=== PATIENT | male | born 1980 | race Caucasian/White ===

== ENCOUNTER → 2020-08-30 15:43 | Outpatient (CLI) | payer BC, SELFPAY ==
--- NOTE | ~2020-08-30 | XR_ITS ---
XR abdomen/kub 1V DATE: 08/30/2020 16:00 INDICATION: Ureteral calculi TECHNIQUE: AP projection, 2 views COMPARISON: None FINDINGS: There is a several millimeter calcification overlying the expected position of the right ur eterovesical junction. No other calcifications are apparent over the urinary tracts. The psoas shadows are intact. No visceromegaly is evident. No evidence of bowel obstruction. Included skeletal structures are unremarkable. IMPRESSION: Suspected right ureterovesical junction several millimeter calcified calculus Reviewed, dictated and finalized at Location A. Reviewed, dictated and finalized at location B. IMPRESSION: Suspected right ureterovesical junction several millimeter calcifie d calculus
== END ==
PROVIDERS: Visit Provider Nurse Practitioner Adult Health
DX: N20.1 Calculus of ureter (principal)
CPT/HCPCS: 74018

== ENCOUNTER → 2020-09-03 12:02 | Outpatient (CLI) | payer BC, SELFPAY ==
--- NOTE | ~2020-09-03 | XR_ITS ---
XR abdomen/kub 1V 09/03/2020 12:18 INDICATION: Ureteral stone TECHNIQUE: KUB COMPARISON: None FINDINGS: Bowel gas pattern is normal. There is no evidence of free air, mass, organomegaly, ascites or obstruction. There is calcification in the right pelvis, possibly distal ureteral stone. This grupo cification is unchanged. Differential diagnosis includes pelvic phlebolith. The bones appear intact. IMPRESSION: 1: Possible distal right ureteral stone versus phlebolith. Recommend correlation with CT.. Reviewed, dictated and finalized at location A. IMPRESSION: 1: Possible distal right ureteral stone versus phlebolith. Recommend correlatio n with CT..
== END ==
PROVIDERS: Visit Provider Nurse Practitioner Adult Health
DX: N20.1 Calculus of ureter (principal)
CPT/HCPCS: 74018

== ENCOUNTER → 2020-09-10 02:05 | Outpatient (CLI) | payer BC, SELFPAY ==
[2020-09-10 17:04] LABS: SARS-CoV-2 RNA PCR Negative
== END ==
PROVIDERS: Visit Provider Urology
DX: Z01.812 Encounter for preprocedural laboratory examination (principal); Z20.822 Contact with and (suspected) exposure to COVID-19
CPT/HCPCS: C9803; U0003; U0005

== ENCOUNTER 2020-09-13 01:51 | Day surgery (SDC) | payer BC, SELFPAY ==
[2020-09-07 15:15] VITALS: BMI 25.0
[2020-09-13] VITALS (7 sets, daily range): BP systolic 113–152; BP diastolic 58–92; PULSE 72–118; RESP 14–18; TEMP 36.3–36.6; O2SAT 97–100
--- NOTE | ~2020-09-13 | XR_ITS ---
EXAMINATION: XR retrograde pyelogram RT EXAM DATE: 09/13/2020 12:15 INDICATION: Right-sided retrograde pyelogram. TECHNIQUE: Fluoroscopy used during XR retrograde pyelogram RT performed by Dr. New Garcia MD , urologist. The radiologist Jayro Keyes M.D. dictating this report of the image(s) available was no t present for the procedure. Total fluoroscopic time of 25 seconds. The DAP for this procedure was 310 radcm2. A total of 52 images sent to PACS from the exam. Cine run(s) available for review. FINDINGS: Approximately 3 mm right pelvic calcification reidentified. This overlies the ureter in re trograde portion of exam. Could be a distal ureteral stone. There is mild right hydroureteronephrosis . Correlate with procedure note. IMPRESSION: Mild right hydroureteronephrosis. Possible distal ureteral stone. Reviewed, dictated and finalized at location B.
--- NOTE | 2020-09-13 06:31 | WPDHPUPDATE1 ---
History and Physical Update Update Date/Time: 09/13/20 06:31 History and Physical has been reviewed, including an updated exam of the patient. There are NO changes in the patient's condition. Risks, benefits, and alternatives have been discussed and questions answered. Patient agrees to proceed with procedure.
[2020-09-13] MEDS: LACTATED RINGERS 1,000 ML 30 ML IV CONT ×2 (09:55→13:02)
--- NOTE | 2020-09-13 10:53 | WPDANESEPPF ---
Anes - Initial Pre Proc Eval Procedure: Operation Date: 09/13/20 11:15 Proposed Procedures p Cystoscopy, Right Ureteroscopy, Retrograde Pyelogram, Stone Extraction, Possible Right Stent Placement - New Garcia MD s Possible Holmium Laser Procedure - New Garcia MD Date/Time: 09/13/20 10:53 Surgeon: New Garcia MD Pre Op Diagnosis: right ureteral kidney stone Patient Data Age: 40 Gender: M Height: 5 ft 6 in Weight: 67.1 kg Last Vital Signs Temp 36.6 C 09/13/20 10:00 Pulse 88 09/13/20 10:00 Resp 18 09/13/20 10:00 BP 135/84 09/13/20 10:00 Pulse Ox 100 09/13/20 10:00 Allergies Allergy/AdvReac Type Severity Reaction Status Date / Time No Known Allergies Allergy Unverified 09/13/20 09:58 Home Medications Medication Instructions Recorded Confirmed Type testosterone cypionate 200 mg IM WEEKLY 09/07/20 09/07/20 History Patient hx anesthesia problems: none Family hx anesthesia problems: none PMFSH Past Medical History Medical History Allergies Screening, lipid Family History Family History Father Family history of atrial fibrillation Social History Social History Smoking status: Never smoker Smoking end date: 04/13/08 Alcohol intake: current Drinks per week: 2 Substance use: never Substance use type: does not use Living arrangements: alone Spiritual care concerns: No Anes - Eval Final PreProcedure Day of Procedure 09/13/20 10:53 Patient weight: normal Heart: regular rate and rhythm Lungs: clear to auscultation Airway: Mallampati scale class II Neurological: alert and oriented Last oral intake: >/= 8 hours ASA classification: I Emergent: no Anesthetic plan: proceed Anesthesia type and monitoring: general LMA and standard monitoring Informed Consent: The patient's anesthetic plan and its attendant risks and benefits were discussed with the patient/family/POA. Questions were solicited and answers provided to the satisfaction of the patient/family/POA.
[2020-09-13] MEDS: LIDOCAINE HCL 2% GEL UROJET 10 ML PKG MUCOUS MEM (11:55)
[2020-09-13] MEDS: ceFAZolin 2 GM/D5W 50 ML 2 GM/50 ML BAG IVPB (11:55)
[2020-09-13] MEDS: KETOROLAC 30 MG/ML VIAL (*BKC) IV PUSH (12:08)
--- NOTE | 2020-09-13 12:12 | PM.PROC ---
Procedure Note - Detailed Date of procedure: 09/13/20 Pre-op diagnosis: right ureteral stone Post-op diagnosis: same Procedure performed: Cystoscopy, right ureteroscopy with stone extraction Description of procedure: The patient was brought to the operative suite where he is prepped and draped in a routine sterile fashion while in the dorsal lithotomy position after the uneventful induction of a general LMA anesthetic. A 19F rigid cystoscope was placed in the bladder. There are no urethral strictures. His prostatic urethra measures, approximately, 1.5cm with no median lobe enlargement. The bladder mucosa was endoscopically normal without hyperemia or neoplasm. There was a single, orthotopic ureteral orifice bilaterally. A 0.035 glidewire was advanced into the right renal pelvis under fluoroscopy. The distal ureter was dilated with an 8F/10F ureteral dilator. Ureteroscopy was undertaken with a short, tapered, semi-rigid ureteroscope and the stone was extracted with ease using a 1.9F Escape disposable stone basket. Due to the ease of this manipulation I opted not to place a ureteral stent. The patient's bladder was emptied and was taken to the recovery room having tolerated this procedure well. Anesthesia: GLMA Surgeon: New Garcia MD Estimated blood loss (mL): 0 Drains: No Packing: No Pathology: yes Complications: No immediate complications Condition: stable Disposition: PACU
== END 2020-09-13 13:36 | disposition home or self-care (01) ==
PROVIDERS: Visit Provider Urology
PROC: (CPT 52352; principal; 2020-09-13 11:15)
DX: N20.1 Calculus of ureter (principal)
CPT/HCPCS: 52352; 74420; 82365; 88300; A9270; C1758; C1769; J0690; J1100; J1885; J2250; J2405; J2704; J3010; J7120; Q9966

== ENCOUNTER 2022-04-24 08:25 | Outpatient (CLI) | payer BC, SELFPAY ==
--- NOTE | 2022-04-29 15:57 | WPDHOMESLEEP ---
Sleep Study - Home Unattended Date of Study: 04/24/22 Ordering Provider: Brian Yin MD Interpreting Provider: Lisa Woodruff, DO Home Sleep Study Type: Watch PAT Height: 1.68 m Weight: 68.039 kg Body Mass Index: 24.2 Neck Circumference (inches): 14.25 [place]: 12 Reason for Sleep Study Daytime hypersomnia Sleep History The patient is a 41-year-old male with dyslipidemia, seasonal allergies, hypogonadism and palpitations that had a sleep study ordered by his primary care for evaluation of sleep disturbances. The patient rarely awakens from sleep short of breath. He rarely awakens at night with heartburn, belching or cough. He frequently snores and is frequently loud enough that others complain. He occasionally has trouble sleeping when he has a cold. He denies waking up gasping for air throughout the night. He rarely has breathing problems at night observed by himself or others. He rarely sweats excessively at night. He occasionally has heart palpitations or irregular heartbeats during the night. He frequently falls asleep during the day but never while driving. He denies sleep paralysis, cataplexy and hypnagogic / hypnopompic hallucinations. He occasionally has trouble at school or work due to sleepiness. He denies feeling afraid of going to sleep. He denies having nightmares. He occasionally remembers his dreams. He frequently has thoughts racing through his mind. He denies feeling sad or depressed. He occasionally has anxiety. He frequently has muscular tension. He denies noticing parts of his body jerk. He rarely kicks during the night. He occasionally has crawling and aching feelings in his legs and occasionally has leg pain during the night. He denies grinding his teeth during sleep and denies awakening with morning jaw pain. He is occasionally bothered by pain during the day but rarely awakened by pain during the night. He constantly wakes up feeling stiff in the morning. He frequently wakes up with sore achy muscles. He frequently wakes up with pain in the neck, spine and other joints. He goes to bed at 10:30 p.m. on weekdays and between 11:00 p.m. to midnight on the weekends. He is able to fall asleep immediately. He wakes up 1-2 times throughout the night to urinate. He is able to fall back asleep within 30 minutes. He wakes up at 7:00 a.m. on both weekdays and weekends. He typically gets a minimum of 8 hours of sleep per night. He will stay in bed for a few minutes after waking up in the morning. He currently lives with his and 2 children. He does not consume any caffeinated beverages within 2 hours of bedtime. He does not engage in physical exercise before bedtime. He will watch television before falling asleep. He will take naps in the afternoon or the evening but they are not refreshing. He does not consume caffeinated beverages throughout the day. He quit smoking 20 years ago. He drinks up to 2 alcoholic beverages per day. He denies recreational drug use. [facility] Past Medical History Medical History Dyslipidemia Hypogonadism in male Kidney stones Right ureteral stone Seasonal allergies Vertigo Surgical History Surgical History History of cystoscopy (~09/2020) Cystoscopy, right ureteroscopy with stone extraction Family History Family History Father Family history of atrial fibrillation Grandparent Cancer Social History Social History Smoking status: Former smoker Smoking end date: 04/13/08 Alcohol intake: current Drinks per week: 2 Substance use: never Substance use type: does not use Lack of Transportation: No Lack of Food: Never True Current Housing: I Have Housing Concerned About Future Housing: No Difficulty Payin
[2022-04-29 16:09] VITALS: BMI 24.2
== END 2022-04-28 14:35 | disposition home or self-care (01) ==
PROVIDERS: PCP Family Medicine; Visit Provider Family Medicine
DX: G47.10 Hypersomnia, unspecified (principal); R40.0 Somnolence
CPT/HCPCS: 95800

== ENCOUNTER 2022-04-28 13:09 | Outpatient (CLI) | payer BC, SELFPAY ==
[2022-04-28 20:00] LABS: Alanine Aminotransferase 74 U/L (6-50); Albumin Level 4.4 g/dL (3.5-5.1); Alkaline Phosphatase 62 U/L (38-126); Anion Gap 5 mmol/L (8-16); Aspartate Amino Transferase 47 U/L (17-59); Bilirubin,Total 0.7 mg/dL (0.2-1.3); Blood Urea Nitrogen 13 mg/dL (9-20); Carbon Dioxide 31 mmol/L (22-30); Chloride 102 mmol/L (98-107); Cholesterol 230 mg/dL (0-200); Estimated Glomerular Filt Rate > 60; Glucose 93 mg/dL (65-110); HDL Direct 48 mg/dL; Potassium 4.8 mmol/L (3.4-5.0); Sodium 138 mmol/L (137-145); Triglycerides 200 mg/dL (<150)
[2022-04-28 20:11] LABS: LDL Cholesterol Direct 115 mg/dL
[2022-04-28 20:14] LABS: Basophils Percent Auto 0.9 % (0.2-1.2); Eosinophils Absolute Auto 0.1 K/mm3 (0-0.3); Eosinophils Percent Auto 2.5 % (0-4.4); Hematocrit 50.4 % (42.0-52.0); Hemoglobin 15.9 g/dL (14.0-18.0); Lymphocytes Absolute Auto 1.57 K/mm3 (0.9-3.2); Mean Corpuscular HGB Conc 31.5 g/dl (32-36); Mean Corpuscular Hemoglobin 27.2 pg (26-34); Mean Corpuscular Volume 86.2 fl (80-100); Mean Platelet Volume 9.7 fl (7.4-10.4); Monocytes Absolute Auto 0.4 K/mm3 (0.1-0.6); Monocytes Percent Auto 8.7 % (2.6-8.5); Neutrophils Absolute Auto 2.4 K/mm3 (1.3-6.7); Neutrophils Percent Auto 52.9 % (45.5-73.1); Platelet Count Result 302 k/mm3 (150-375); Red Blood Count 5.85 M/mm3 (4.6-6.20); Red Cell Distribution Width 14.3 % (11.5-14.5); White Blood Count 4.5 K/mm3 (4.5-10.0)
[2022-04-28 21:07] LABS: Hemoglobin A1C 5.6 % (<5.7)
[2022-04-28 21:23] LABS: Vitamin D 25 Hydroxy 25.3 ng/mL
== END 2022-04-28 13:10 | disposition home or self-care (01) ==
LOC: ANHGOSHLAB 13:10
PROVIDERS: PCP Family Medicine; Visit Provider Family Medicine
DX: Z00.00 Encounter for general adult medical examination without abnormal findings (principal); R53.83 Other fatigue; E78.5 Hyperlipidemia, unspecified; R40.0 Somnolence; Z13.1 Encounter for screening for diabetes mellitus; E55.9 Vitamin D deficiency, unspecified; E53.8 Deficiency of other specified B group vitamins
CPT/HCPCS: 36415; 80053; 80061; 82306; 82607; 83036; 84443; 85025

== ENCOUNTER 2022-04-28 13:36 | Outpatient (RCR) | payer BC, SELFPAY ==
--- NOTE | 2022-04-28 14:52 | PTOPEVDC ---
Assessment and note entered by Kit Anguiano, PT Thank you for referring [facility] to [facility].? An evaluation has been completed. No further treatment is needed. Evaluation Information Assessment Status Evaluation Diagnosis dizziness and giddiness Onset 20+ years ago Subjective Information Jovanny reports that he has had dizzy spells on and off for 20 years, mainly when looking down at his table or when riding in a car. Along with dizziness he will get nausea, but not vomit. He reports the last spell happened in March while he had an ear infection. Patient reports when he gets it he just needs to rest for the rest of the day and the next morning he will be fine. With no continuing symptoms. Reported Pain Level Pain Score 0: Self Report Assessment PT Clinical Summary Jovanny is a 41 year old male coming into the clinic with a diagnosis of dizziness and giddiness. He was able to progress through visual testing without any concern same for most of balance testing, only having issue with vertical and horizontal head movement during ambulation. The patient does not appear to have BPPV so Rhett maneuver was held. Gave patient HEP of habituation exercises to work on. Plan of Care PT Services Indicated No Treatment Frequency and discharged from skilled physical therapy with a Duration HEP.
== END 2022-04-29 13:47 | disposition home or self-care (01) ==
LOC: ANHPT 13:36
PROVIDERS: PCP Family Medicine; Visit Provider Family Medicine
DX: R42 Dizziness and giddiness (principal)
CPT/HCPCS: 97110; 97161

== ENCOUNTER 2023-05-28 08:33 | Outpatient (CLI) | payer BC, SELFPAY ==
[2023-06-16 17:36] VITALS: BMI 26.1
--- NOTE | 2023-06-16 17:36 | WPDSLEEPSTUD ---
Sleep Study Date of Study: 05/28/23 Ordering Provider: Brian Yin MD Interpreting Physician: Lisa Woodruff, Sleep Study Type: Polysomnogram Height: 1.68 m Weight: 73.482 kg Body Mass Index: 26.1 Neck Circumference (inches): 14.25 [place]: 12 Reason for Sleep Study The patient had a WatchPAT home sleep test on 04/24/2022 that showed an overall AHI of 1.1 with desaturation down to 90%. There was a discrepancy between the AHI and RDI and the patient had an [place] Sleepiness Scale score of 12. Sleep History The patient is a 43-year-old male with dyslipidemia, seasonal allergies, hypogonadism and palpitations that had a sleep study ordered by his primary care for evaluation of sleep disturbances.? The patient rarely awakens from sleep short of breath.? He rarely awakens at night with heartburn, belching or cough.? He frequently snores and is frequently loud enough that others complain.? He occasionally has trouble sleeping when he has a cold.? He denies waking up gasping for air throughout the night.? He rarely has breathing problems at night observed by himself or others.? He rarely sweats excessively at night.? He occasionally has heart palpitations or irregular heartbeats during the night.? He frequently falls asleep during the day but never while driving.? He denies sleep paralysis, cataplexy and hypnagogic / hypnopompic hallucinations.? He occasionally has trouble at school or work due to sleepiness.? He denies feeling afraid of going to sleep.? He denies having nightmares.? He occasionally remembers his dreams.? He frequently has thoughts racing through his mind.? He denies feeling sad or depressed.? He occasionally has anxiety.? He frequently has muscular tension.? He denies noticing parts of his body jerk.? He rarely kicks during the night.? He occasionally has crawling and aching feelings in his legs and occasionally has leg pain during the night.? He denies grinding his teeth during sleep and denies awakening with morning jaw pain.? He is occasionally bothered by pain during the day but rarely awakened by pain during the night.? He constantly wakes up feeling stiff in the morning.? He frequently wakes up with sore achy muscles.? He frequently wakes up with pain in the neck, spine and other joints.? He goes to bed at 10:30 p.m. on weekdays and between 11:00 p.m. to midnight on the weekends.? He is able to fall asleep immediately.? He wakes up 1-2 times throughout the night to urinate.? He is able to fall back asleep within 30 minutes.? He wakes up at 7:00 a.m. on both weekdays and weekends.? He typically gets a minimum of 8 hours of sleep per night.? He will stay in bed for a few minutes after waking up in the morning.? He currently lives with his and 2 children.? He does not consume any caffeinated beverages within 2 hours of bedtime.? He does not engage in physical exercise before bedtime.? He will watch television before falling asleep.? He will take naps in the afternoon or the evening but they are not refreshing. He does not consume caffeinated beverages throughout the day.? He quit smoking 20 years ago.? He drinks up to 2 alcoholic beverages per day.? He denies recreational drug use. [facility] Past Medical History Medical History Dyslipidemia Hypogonadism in male Kidney stones Rash Right ureteral stone Seasonal allergies Tick bite Vertigo Vitamin D deficiency Surgical History Surgical History History of cystoscopy (~09/2020) Cystoscopy, right ureteroscopy with stone extraction Family History Family History Father Family history of atrial fibrillation Grandparent Cancer Social History Social History Social History: caffeine- rarely Smoking status: Former smoker (< 5 pack years) S
== END 2023-05-29 07:33 | disposition home or self-care (01) ==
LOC: ANHCSM 08:34
PROVIDERS: PCP Family Medicine; Visit Provider Family Medicine
DX: R40.0 Somnolence (principal); R53.83 Other fatigue
CPT/HCPCS: 95810

== ENCOUNTER 2023-05-29 08:09 | Outpatient (CLI) | payer BC, SELFPAY ==
[2023-05-29 17:46] LABS: Alanine Aminotransferase 33 U/L (6-50); Albumin Level 4.4 g/dL (3.5-5.1); Alkaline Phosphatase 58 U/L (38-126); Anion Gap 6 mmol/L (8-16); Aspartate Amino Transferase 38 U/L (17-59); Bilirubin,Total 0.9 mg/dL (0.2-1.3); Blood Urea Nitrogen 17 mg/dL (9-20); Calcium 10.1 mg/dL (8.4-10.2); Carbon Dioxide 29 mmol/L (22-30); Chloride 102 mmol/L (98-107); Cholesterol 219 mg/dL (0-200); Estimated Glomerular Filt Rate > 60; Glucose 78 mg/dL (65-110); HDL Direct 41 mg/dL; Potassium 4.4 mmol/L (3.4-5.0); Sodium 137 mmol/L (137-145); Triglycerides 162 mg/dL (<150)
[2023-05-29 17:48] LABS: Eosinophils Absolute Auto 0.1 K/mm3 (0-0.3); Eosinophils Percent Auto 1.7 % (0-4.4); Hematocrit 53.6 % (42.0-52.0); Hemoglobin 16.8 g/dL (14.0-18.0); Immature Granulocyte Absolute 0.01 K/mm3 (0.00-0.031); Immature Granulocyte Percent A 0.2 % (0-0.5); Lymphocytes Absolute Auto 1.27 K/mm3 (0.9-3.2); Lymphocytes Percent Auto 30.8 % (18.3-44.2); Mean Corpuscular HGB Conc 31.3 g/dl (32-36); Mean Corpuscular Hemoglobin 27.2 pg (26-34); Mean Corpuscular Volume 86.9 fl (80-100); Mean Platelet Volume 9.5 fl (7.4-10.4); Monocytes Absolute Auto 0.5 K/mm3 (0.1-0.6); Monocytes Percent Auto 10.9 % (2.6-8.5); Neutrophils Absolute Auto 2.3 K/mm3 (1.3-6.7); Neutrophils Percent Auto 55.4 % (45.5-73.1); Platelet Count Result 292 k/mm3 (150-375); Red Blood Count 6.17 M/mm3 (4.6-6.20); Red Cell Distribution Width 13.9 % (11.5-14.5); White Blood Count 4.1 K/mm3 (4.5-10.0)
[2023-05-29 17:57] LABS: LDL Cholesterol Direct 130 mg/dL
[2023-05-29 18:00] LABS: Vitamin D 25 Hydroxy 86.2 ng/mL
[2023-05-29 18:14] LABS: Hemoglobin A1C 5.5 % (<5.7); Thyroid Stimulating Hormone Reflex 0.872 uIU/mL (0.465-4.68)
== END 2023-05-29 08:10 | disposition home or self-care (01) ==
LOC: ANHGOSHLAB 08:10
PROVIDERS: PCP Family Medicine; Visit Provider Family Medicine
DX: E53.8 Deficiency of other specified B group vitamins (principal); Z00.00 Encounter for general adult medical examination without abnormal findings; R73.9 Hyperglycemia, unspecified; R74.8 Abnormal levels of other serum enzymes; E78.5 Hyperlipidemia, unspecified; Z13.29 Encounter for screening for other suspected endocrine disorder; E55.9 Vitamin D deficiency, unspecified
CPT/HCPCS: 36415; 80053; 80061; 82306; 82607; 83036; 84443; 85025

== ENCOUNTER 2024-05-18 08:06 | Outpatient (CLI) | payer BC, SELFPAY ==
--- OUTSIDE RECORDS SUMMARY | 2024-05-18 08:15 | XMS_ITS | Referral Summary ---
Author Organization [facility] Address [address] [place] [address] Care Team Providers Care Pharmacy Technician Inpatient Name Role Phone Unavailable Primary Care Provider Unavailabl e Source Comments [facility] [employer],non-owned Affiliates and Associated Physician Practices is amultiple site organization consisting of ambulatory clinics and hospital sitesin [place], [place], [place] and [place]. This disclosure is being madepursuant to the Care Everywhere program and may not contain all information available regarding this patient. Last updated 18.[facility] [employer] Allergies No known active allergies Medications * Be aware that medications may not be up to date on this document. Alwaysverify current medications with the patient. Medication Sig Dispensed Refills Start Date End Date Status TESTOSTERONE CYPIONATE IM Active testosterone cypionate (DEPO-TESTOSTERONE) 100 MG/ML injection 100 mg/mL 12/22/2014 Active Social History Tobacco Use Types Packs/Day Years Used Date Smoking Tobacco: Never Smokeless Tobacco: Never Sex and Gender Information Value Date Recorded Sex Assigned at Not on file Gender Identity Not on file Sexual Orientation Not on file Last Filed Vital Signs Vital Sign Reading Time Taken Comments Blood Pressure 116/72 12/29/2018 9:22 AM CDT Pulse 88 12/29/2018 9:22 AM CDT Temperature 36.9 ??C (98.5 ??F) 12/29/2018 9:22 AM CD T Respiratory Rate 16 12/29/2018 9:22 AM CDT Oxygen Saturation 98% 12/29/2018 9:22 AM CDT Inhaled Oxygen Concentration - - Weight 70.3 kg (155 lb) 12/29/2018 9:22 AM CDT Height 170.2 cm (5' 7 ) 12/29/2018 9:22 AM CDT Body Mass Index 24.28 12/29/2018 9:22 AM CDT Plan of Treatment Not on file
--- OUTSIDE RECORDS SUMMARY | 2024-05-18 08:15 | XMS_ITS | Clinical Summary ---
Author Organization [facility] Address [address] [place] [address] Care Team Providers Care Residential Interior Designer Name Role Phone Unavailable Primary Care Provider Unavailabl e Source Comments [facility] [employer],non-owned Affiliates and Associated Physician Practices is amultiple site organization consisting of ambulatory clinics and hospital sitesin [place], [place], [place] and [place]. This disclosure is being madepursuant to the Care Everywhere program and may not contain all information available regarding this patient. Last updated 18.[facility] [employer] Allergies No known active allergies Medications * [...] 12/29/2018 9:22 AM CDT Plan of Treatment Health Maintenance Due Date Last Done Comments LIPID TESTING 1982 HIV SCREENING 1997 HEPATITIS C SCREENING 05/07/2000 DTAP/TDAP/TD VACCINES (1 - Tdap) 2001 HEPATITIS B VACCINE (1 of 3 - 19+ 3-dose series) 2001 COVID-19 VACCINE (1 - 2023-2 5 season) 2023 INFLUENZA VACCINE (#1) 2023 DEPRESSION SCREENING 04/13/2024 ZOSTER VACCINE (1 of 2) 2032 HIB VACCINE Aged Out No longer eligi ble based on patient's age to complete this topic HPV VACCINE Aged Out No longer eligi ble based on patient's age to complete this topic MENINGOCOCCAL (Group B) VACCINE Aged Out No longer eligible based on patient's age to complete this topic MENINGOCOCCAL VACCINE Aged Out No zuleyka radha eligible based on patient's age to complete this topic PNEUMOCOCCAL VACCINE Aged Out No long er eligible based on patient's age to complete this topic
--- OUTSIDE RECORDS SUMMARY | 2024-05-18 08:15 | XMS_ITS | Clinical Summary ---
Author Organization [facility] Address [address] [place] [id number] Care Team Providers Care Putty Tinter Maker Name Role Phone None, Provider MD Primary Care Provider Unavaila ble Allergies No known active allergies Medications Testosterone Cypionate 100 MG/ML Solution Inject 12.5 mLs into the muscle once a week. Active Family History Medical History Relation Comments Hyperlipidemia Sister Relation Status Comments Sister Social History Tobacco Use Types Packs/Day Years Used Date Smoking Tobacco: Never Smokeless Tobacco: Never Alcohol Use Standard Drinks/Week Comments Yes 0 (1 standard drink = 0.6 oz pur e alcohol) socially 2-4 weekly Sex and Gender Information Value Date Recorded Sex Assigned at Not on file Legal Sex Male 7:12 PM CDT Gender Identity Not on file Sexual Orientation Not on file Last Filed Vital Signs Vital Sign Reading Time Taken Comments Blood Pressure 132/81 08/24/2020 12:30 PM CDT Pulse 85 08/24/2020 9:29 AM CDT Temperature 36.5 ??C (97.7 ??F) 08/24/2020 9:29 AM CD T Respiratory Rate 16 08/24/2020 9:29 AM CDT Oxygen Saturation 99% 08/24/2020 12:41 PM CDT Inhaled Oxygen Concentration - - Weight 70.3 kg (155 lb) 08/24/2020 9:29 AM CDT Height 167.6 cm (5' 6 ) 08/24/2020 9:29 AM CDT Body Mass Index 25.02 08/24/2020 9:29 AM CDT Plan of Treatment Health Maintenance Due Date Last Done Comments Annual Physical 1985 Hepatitis C 2000 DTaP, Tdap and Td Vaccines ( 1 - Tdap) 2001 Hepatitis B Vaccines (1 of 3 - 19+ 3-dose series) 2001 COVID-19 Vaccine (2023-2 5 season) 2023 Influenza Adult (#1) 2024 HPV Vaccines Aged Out No longer eligi ble based on patient's age to complete this topic Meningococcal B Vaccine Aged Out No l onger eligible based on patient's age to complete this topic Meningococcal Vaccine Aged Out No zuleyka radha eligible based on patient's age to complete this topic Pneumococcal Vaccine: Pediat rics (0 to 5 Years) and At-Risk Patients (6 to 64 Years) Aged Out No longer eligible b ased on patient's age to complete this topic RSV Immunizations Under 20 Months Aged Out No longer eligible based on patient's age to complete this topic Insurance Care Teams Putty Tinter Maker Relationship Specialty Start Date End Date None, Provider, PCP - General 08/24/20
--- OUTSIDE RECORDS SUMMARY | 2024-05-18 08:15 | XMS_ITS | Patient Health Summary ---
Author Organization [facility] Address [address] [place] [address] Care Team Providers Care Correctional Probation Officer Name Role Phone Unavailable Primary Care Provider Unavailabl e Note from [facility],non-owned Affiliates and Associated Physician Practices is amultiple site organization consisting of ambulatory clinics and hospital sitesin [place], [place], [place] and [place]. This disclosure is being madepursuant to the Care Everywhere program and may not contain all information available regarding this patient. Last updated 18.[facility] [employer] Allergies No known active allergies Medications * Be aware that medications may not be up to date on this document. Alwaysverify current medications with the patient. * TESTOSTERONE CYPIONATE IM * testosterone cypionate (DEPO-TESTOSTERONE) 100 MG/ML injection(Started 12/22/2014) 100 mg/mL Social History Tobacco Use Types Packs/Day Years [...] Mass Index 24.28 12/29/2018 9:22 AM CDT Procedures * STREP A SCREEN - POINT OF CARE (AMB) STL(Performed 12/29/2018) Performed for Nasopharyngitis * STREP A SCREEN - POINT OF CARE (AMB) STL(Performed 06/17/2018) Performed for Influenza * INFLUENZA A+B - POINT OF CARE (AMB)(Performed 06/17/2018) Performed for Influenza * STREP A SCREEN - POINT OF CARE (AMB) STL(Performed 06/17/2016) Performed for Strep throat * STREP A SCREEN - POINT OF CARE (AMB) STL(Performed 03/18/2016) Performed for Strep throat Results * STREP A SCREEN (12/29/2018) Only the most recent of4 resultswithin the time period is included. Strep A Rapid POCT Negative Negative Strep A Internal Control Present Lot # [id number] Expiration Date 04/12/2020 Throat ENTIRE THROAT (SURFACE REGION OF NECK) / Unknown 12/29/2018 Nazia Connor SUPPORT ASSISTANT-GAS METER REPAIR SUPERVISOR LAB - POINT OF CARE ORDERABLES * (ABNORMAL) INFLUENZA A+B - POINT OF CARE (AMB) (06/17/2018) Influenza A Antigen Rapid Positive(A) Negative Influenza B Antigen Rapid Negative Negative Influenza Internal Control yes NEGATIVE - POSITIVE Influenza Lot Number [id number] Influenza Expiration Date 01/05/20 Other NASOPHARYNGEAL SWAB / Unknown 06/17/2018 Hortencia Zhao SUPPORT ASSISTANT-GAS METER REPAIR SUPERVISOR LAB - POINT OF CA RE ORDERABLES
[2024-05-18 14:06] LABS: Basophils Percent Auto 0.7 % (0.2-1.2); Eosinophils Absolute Auto 0.1 K/mm3 (0-0.3); Eosinophils Percent Auto 1.9 % (0-4.4); Hematocrit 51.9 % (42.0-52.0); Hemoglobin 16.6 g/dL (14.0-18.0); Immature Granulocyte Absolute 0.01 K/mm3 (0.00-0.031); Immature Granulocyte Percent A 0.2 % (0-0.5); Lymphocytes Percent Auto 30.9 % (18.3-44.2); Mean Corpuscular Hemoglobin 27.6 pg (26-34); Mean Corpuscular Volume 86.2 fl (80-100); Mean Platelet Volume 10.1 fl (7.4-10.4); Monocytes Absolute Auto 0.5 K/mm3 (0.1-0.6); Monocytes Percent Auto 11.4 % (2.6-8.5); Neutrophils Absolute Auto 2.3 K/mm3 (1.3-6.7); Neutrophils Percent Auto 54.9 % (45.5-73.1); Platelet Count Result 304 k/mm3 (150-375); Red Blood Count 6.02 M/mm3 (4.6-6.20); Red Cell Distribution Width 13.8 % (11.5-14.5); White Blood Count 4.2 K/mm3 (4.5-10.0)
[2024-05-18 16:30] LABS: Vitamin D 25 Hydroxy 45.8 ng/mL
[2024-05-18 16:35] LABS: Alanine Aminotransferase 29 U/L (6-50); Albumin Level 4.4 g/dL (3.5-5.1); Alkaline Phosphatase 56 U/L (38-126); Anion Gap 8 mmol/L (4-12); Aspartate Amino Transferase 44 U/L (17-59); Bilirubin,Total 0.6 mg/dL (0.2-1.3); Blood Urea Nitrogen 14 mg/dL (9-20); Calcium 10.4 mg/dL (8.4-10.2); Carbon Dioxide 29 mmol/L (22-30); Chloride 102 mmol/L (98-107); Cholesterol 219 mg/dL (0-200); Estimated Glomerular Filt Rate > 60; Glucose 80 mg/dL (65-110); HDL Direct 47 mg/dL; Potassium 4.9 mmol/L (3.4-5.0); Sodium 139 mmol/L (137-145); Triglycerides 112 mg/dL (<150)
[2024-05-18 16:44] LABS: Thyroid Stimulating Hormone Reflex 0.659 uIU/mL (0.465-4.68)
[2024-05-18 16:52] LABS: LDL Cholesterol Direct 135 mg/dL
[2024-05-18 19:20] LABS: Hemoglobin A1C 5.6 % (<5.7)
== END 2024-05-18 08:07 | disposition home or self-care (01) ==
LOC: ANHGOSHLAB 08:07
PROVIDERS: PCP Family Medicine; Visit Provider Family Medicine
DX: Z00.00 Encounter for general adult medical examination without abnormal findings (principal); E29.1 Testicular hypofunction; R53.83 Other fatigue; R73.9 Hyperglycemia, unspecified; I10 Essential (primary) hypertension; E55.9 Vitamin D deficiency, unspecified; E53.8 Deficiency of other specified B group vitamins
CPT/HCPCS: 36415; 80053; 80061; 82306; 82607; 83036; 84443; 85025

== ENCOUNTER 2024-05-18 08:19 | Outpatient (CLI) | payer BC, SELFPAY ==
--- NOTE | ~2024-05-18 | XR_ITS ---
EXAMINATION: XR knee RT min 4V DATE: 05/18/2024 08:34 INDICATION: Right knee pain. TECHNIQUE: 4 views of right knee including standing views were obtained. COMPARISON: None. FINDINGS: Alignment is normal. No fracture. There is mild osteoarthritis of patellofemoral compartmen t characterized by tiny osteophytes. No knee joint effusion. IMPRESSION: 1. Mild right knee osteoarthritis. Reviewed, dictated and finalized at location A. CENTER OPERATOR
== END 2024-05-18 08:20 | disposition home or self-care (01) ==
LOC: GOSHIMG 08:20
PROVIDERS: PCP Family Medicine; Visit Provider Family Medicine
DX: M25.561 Pain in right knee (principal)
CPT/HCPCS: 73564

== ENCOUNTER 2024-05-23 15:24 | Outpatient (RCR) | payer BC, SELFPAY ==
--- NOTE | 2024-05-23 16:27 | OPREHPOC ---
Outpatient Therapy Plan of Care This is a Multidisciplinary Plan of Care that may contain components documented by all disciplines (PT, OT, and ST.) PT Problem 1 PT Problem #1 Knowledge Deficit PT Goal 1 Goal / Goal Update *indep with HEP Target Visit 6 PT Problem 2 PT Problem #2 Pain PT Goal 1 Goal / Goal Update * pt report pain at the worst of 4/10, to increase activity level Target Visit 6 PT Problem 3 PT Problem #3 Impaired Flexibility PT Goal 1 Goal / Goal Update *increase hamstring length to improve knee mobility * supine SLR to 65' Target Visit 6 PT Problem 4 PT Problem #4 Impaired Strength PT Goal 1 Goal / Goal Update increase strength of R hip and knee, to improve stability to knee: 1* single leg PF x 15 reps with good stability 2* single leg standing x 30 seconds with good stability 3* pt able to run on the treadmill for 8 minutes without an increase in pain Target Visit 6
--- NOTE | 2024-05-23 16:27 | PTOPEVAL1 ---
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 LE functional scale rating of 15% limitation in activity--he reports issues with stairs and is not running due to knee pain. He is able to do all of his home and work activities with increase knee pain. xray reports mild OA of knee with patella femoral osteophytes. With the evaluation: he has tightness over hamstring and weakness over hip abduction and adduction muscles, with decreased stability of knee with single leg standing and single leg PF. Patella has slight lateral tilt. Skilled PT services are indicated for modalities to decrease pain and therapeutic exercises to increase hip and knee strength, and improve patellar tracking, with education for HEP. His goal is to return to running. Plan of Care Interventions Electrical Stimulation,Hot Pack/Cold Pack,Manual Therapy,Neuro Re-education,Patient/Caregiver Education,Therapeutic Activities,Therapeutic Exercise,Ultrasound,Other Other Interventions taping PT Services Indicated Yes Treatment Frequency and 1-2x/wk for 6 visits Duration These treatments will address the objective and functional deficits as defined above. The patient will be advanced safely and appropriately in order for the patient to progress towards his/her prior level of function. Additional exercises will be introduced and as well as a comprehensive home exercise program upon discharge, if needed, ?to ensure carryover of functional gains achieved in the clinic. This treatment plan has been reviewed and agreement upon by the patient.
--- NOTE | 2024-07-01 12:41 | PTOPDC ---
Assessment and note entered by Mimi Clark, PT Assessment Status Discharge - Pt Not Present ICD-10 Condition Codes (PT) Pain in right knee M25.561 Onset September 2023 Subjective Information pt was not seen this date. Assessment PT Clinical Summary River received the PT evaluation on 05-23-24 and has not returned for any treatment. Discharge PT. The goals were not addressed. Plan of Care PT Services Indicated No
== END 2024-07-01 14:28 | disposition home or self-care (01) ==
LOC: ANHPT 15:24
PROVIDERS: PCP Family Medicine; Visit Provider Family Medicine
DX: M25.561 Pain in right knee (principal)
CPT/HCPCS: 97110; 97161; 97530

== ENCOUNTER → 2025-01-10 15:17 | Outpatient (REF) | payer BC, SELFPAY ==
--- NOTE | 2025-01-10 15:17 | S_PTH ---
PATIENT: River Jordan LOC: [facility] U#:[id number] AGE/SX: 44/M ROOM: RE01/10/[address]: Franco Dyer MD : 1980 BED: DIS: SPEC #: [id number] RECD: 01/11/25 07:40 STATUS: FÁTIMA REBrianna #: [id number] SANDRA: 01/10/25 15:[address]: Franco Dyer DEPT: [facility] Surgical RECD BY: Radha Villela ENTERED: 01/11/25 07:40 SP TYPE: Surgical OTHR DR: Brian Yin MD Tissues: A - Mass Procedures: Hematoxylin and Eosin Stain Gross and Microscopic Level 3
--- OUTSIDE RECORDS SUMMARY | 2025-01-10 15:19 | XMS_ITS | Clinical Summary ---
Author Organization [facility] Address [address] [place] [address] Care Team Providers Care Care Tech Name Role Phone Brian Yin MD Primary Care Provider Allergies No known active allergies Medications Testosterone [...] Sign Reading Time Taken Comments Blood Pressure 136/88 06/04/2024 5:15 PM MEDICAL TRANSPORT SPECIALIST Pulse 70 06/04/2024 5:15 PM MEDICAL TRANSPORT SPECIALIST Temperature 37.1 C (98.7 F) 06/04/2024 5:15 PM MEDICAL TRANSPORT SPECIALIST Respiratory Rate 18 06/04/2024 5:15 PM MEDICAL TRANSPORT SPECIALIST Oxygen Saturation 98% 06/04/2024 5:15 PM MEDICAL TRANSPORT SPECIALIST Inhaled Oxygen Concentration - - Weight 70.3 kg (155 lb) 06/04/2024 2:29 PM MEDICAL TRANSPORT SPECIALIST Height 167.6 cm (5' 6) 06/04/2024 2:29 PM MEDICAL TRANSPORT SPECIALIST Body Mass Index 25.02 06/04/2024 2:29 PM MEDICAL TRANSPORT SPECIALIST Plan of Treatment Health Maintenance Due Date Last Done Comments Annual Physical 1983 Hepatitis C 2000 DTaP, Tdap and Td Vaccines ( 1 - Tdap) 2001 Hepatitis B Vaccines (1 of 3 - 19+ 3-dose series) 2001 HPV Vaccines (1 - 3-dose SCD M series) 2009 COVID-19 Vaccine (1 - 2023-2 5 season) 2024 Meningococcal B Vaccine Aged Out No l onger eligible based on patient's age to complete this topic Meningococcal Vaccine Aged Out No zuleyka radha eligible based on patient's age to complete this topic Pneumococcal Vaccine: Pediat rics (0 to 5 Years) and At-Risk Patients (6 to 49 Years) Aged Out No longer eligible b ased on patient's age to complete this topic RSV Immunizations Under 20 Months Aged Out No longer eligible based on patient's age to complete this topic Insurance Care Teams Care Tech Relationship Specialty Start Date End Date Brian Yin MD [id number] [facility] [address] [place] [address] PCP - General FAMILY PRACTICE 06/04/24
== END ==
LOC: ANHLAB 15:17
PROVIDERS: PCP Family Medicine; Visit Provider Plastic Surgery
DX: L72.0 Epidermal cyst (principal)
CPT/HCPCS: 88304